=== PATIENT | male | born 1960 | race Caucasian/White ===

== ENCOUNTER 2025-03-04 06:00 | Day surgery (SDC) | payer OTHER, SELFPAY ==
[2025-03-04] VITALS (13 sets, daily range): BP systolic 121–170; BP diastolic 79–99; BMI 26.4
[2025-03-04] MEDS: CYSVIEW KIT 100 MG INTRAVES (10:43)
[2025-03-04] MEDS: NORMOSOL-R/PLASMALYTE-A 1000 IV (11:18)
--- NOTE | 2025-03-04 11:33 | W.SUR.PREOP ---
Pre-Operative Surgical Note
-
I have examined this patient prior to the performance of the scheduled procedure.
The patient's condition is unchanged from the time of the current History and
Physical and the patient is able to undergo the scheduled procedure.
To OR for blue light TURBT + intravesical gemcitabine.
[2025-03-04] MEDS: DETROL LA 4 MG PO (13:05)
[2025-03-04] MEDS: VALIUM INJECTION 2 MG IV (13:06)
[2025-03-04] MEDS: SYRINGE NON-PUMP 50 ML IRRIG ×2 (13:08→13:09)
[2025-03-04] MEDS: SYRINGE NON-PUMP 50 MG IRRIG ×2 (13:08→13:09)
[2025-03-04] MEDS: SUBLIMAZE 25 MCG IV (13:24)
[2025-03-04] MEDS: ROXICODONE 5 MG PO (14:27)
== END 2025-03-04 14:41 | disposition home or self-care (01) ==
LOC: SDS 06:00
PROVIDERS: ATTENDING PHYSICIAN Surgery
DX: C67.9 Malignant neoplasm of bladder, unspecified (principal)
CPT/HCPCS: 52240; C9738; 88307; 93005; A9589; J9201